=== PATIENT | male | born 1930 | race Hispanic/Latino ===

== ENCOUNTER 2017-08-27 16:46 | Observation (INO) | payer MEDICARE ==
[2017-08-27] MEDS ORDERED: Sodium Chloride 0.9% 500 ML IV STA (17:14)
--- NOTE | 2017-08-27 17:18 | ED PDOC ---
Arrival/HPI - General Chief Complaint: Dizziness/Lightheaded Time Seen by Provider: 08/27/17 16:50 Historian: Patient, Spouse - History of Present Illness Time/Duration: Other (This morning) Symptom Onset: Gradual Symptom Course: Unchanged Severity Level: Moderate Activities at Onset: Rest Associated Symptoms (Text): 08/27/17 17:16 Patient was at work this morning when he developed generalized weakness and fatigue and feeling as if he were going to faint. He did not actually faint. No chest pain palpitations or dyspnea. No nausea or vomiting. He has never experienced this previously. No cough congestion or URI. No fever or chills. No injury or trauma. History of coronary artery disease and stent placement in 2013. Past Medical History - Tetanus Immunization Tetanus Immunization: Unknown - Cardiac Hx Cardiac Disorders: Yes Hx Congestive Heart Failure: Yes Hx Hypertension: Yes Hx Pacemaker: No Hx Peripheral Edema: Yes (chronic) - Pulmonary Hx Respiratory Disorders: No - Neurological Hx Neurological Disorder: No Hx Paralysis: No - HEENT Hx HEENT Disorder: Yes ([place]) - Renal Hx Renal Disorder: No - Endocrine/Metabolic Hx Endocrine Disorders: No - Hematological/Oncological Hx Blood Disorders: No Hx Blood Transfusions: No Hx Blood Transfusion Reaction: No - Integumentary Hx Dermatological Disorder: No - Musculoskeletal/Rheumatological Hx Musculoskeletal Disorders: Yes Hx Falls: Yes Hx Gout: Yes - Gastrointestinal Hx Gastrointestinal Disorders: No Other/Comment: umbilical hernia - Genitourinary/Gynecological Hx Genitourinary Disorders: Yes Hx Prostate Problems: Yes - Psychiatric Hx Psychophysiologic Disorder: No Hx Emotional Abuse: No Hx Physical Abuse: No Hx Substance Use: No - Surgical History Hx Cardiac Catheterization: Yes Hx Coronary Stent: Yes Hx Orthopedic Surgery: Yes (right rotator cuff repair) Other/Comment: ptca with stents 2013. left 3rd digit - Anesthesia Hx Anesthesia: Yes Hx Anesthesia Reactions: No Hx Malignant Hyperthermia: No - Suicidal Assessment Feels Threatened In Home Enviroment: No Family/Social History - Physician Review Nursing Documentation Reviewed: Yes Family/Social History: Unknown Family HX Smoking Status: Former Smoker Hx Alcohol Use: No Hx Substance Use: No Hx Substance Use Treatment: No Allergies/Home Meds Allergies/Adverse Reactions: Allergies No Known Allergies Allergy (Verified 08/27/17 17:05) Home Medications: Home Meds Medication Instructions Recorded Confirmed Tamsulosin [Flomax] 0.4 mg PO QPM 09/16/13 08/27/17 Carvedilol [Coreg] 6.25 mg PO BID 09/17/13 08/27/17 Atorvastatin Calcium [Lipitor] 10 mg PO DAILY 06/10/14 08/27/17 Aspirin [Adult Low Dose Aspirin EC] 81 mg PO DAILY 08/27/17 08/27/17 Ciprofloxacin [Cipro] 500 mg PO BID 08/27/17 08/27/17 Colchicine [Colcrys] 0.6 mg PO TID 08/27/17 08/27/17 Furosemide [Lasix] 60 mg PO DAILY 08/27/17 08/27/17 Levetiracetam [Keppra] 250 mg PO BID 08/27/17 08/27/17 Travoprost [Travatan Z 2.5 ml] 2.5 ml OP DAILY 08/27/17 08/27/17 Review of Systems - Physician Review All systems were reviewed & negative as marked: Yes - Review of Systems Constitutional: Fatigue. absent: Fevers Respiratory: absent: SOB, Cough, Wheezing Cardiovascular: absent: Chest Pain, Palpitations, Syncope Gastrointestinal: absent: Abdominal Pain, Diarrhea, Nausea, Vomiting Neurological: absent: Headache, Dizziness, Focal Weakness, Gait Changes Physical Exam Vital Signs Temp Pulse Resp BP Pulse Ox 08/27/17 17:05 105/44 L 08/27/17 16:46 98.1 F 67 18 127/66 98 Temperature: Afebrile Blood Pressure: Hypotensive Pulse: Regular Respiratory Rate: Normal Appearance: Positive for: Well-Appearing, Non-Toxic, Comfortable Pain Distress: None Mental Status: Positive for: Alert and Oriented X 3 - Systems Exam Head: Present: Atraumatic, Normocephalic Pupils: Present: PERRL Extroacular Muscles: Present: EOMI Conjunctiva: Present: Normal Ears: Present: NORMAL TM, Normal Canal. No: Erythema Mouth: Present: Moist Mucous Membranes Pharnyx: No: ERYTHEMA, EXUDATE, TONSILS ENLARGED Neck: Present: Normal Range of Motion Respiratory/Chest: Present: Clear to Auscultation, Good Air Exchange, Decreased Breath Sounds. No: Respiratory Distress, Accessory Muscle Use Cardiovascular: Present: Regular Rate and Rhythm, Normal S1, S2. No: Murmurs Abdomen: No: Tenderness, Distention, Peritoneal Signs, Rebound, Guarding Upper Extremity: Present: Normal Inspection. No: Cyanosis, Edema Lower Extremity: Present: Normal Inspection. No: Edema Neurological: Present: GCS=15, CN II-XII Intact, Speech Normal, Motor Func Grossly Intact, Normal Sensory Function, Normal Cerebellar Funct Skin: Present: Warm, Dry, Normal Color. No: Rashes Psychiatric: Present: Alert, Oriented x 3, Normal Insight, Normal Concentration Medical Decision Making ED Course and Treatment: 08/27/17 17:35 EKG shows normal sinus rhythm rate approximately 70 with a primary AV block and a right bundle branch block and no acute ST-T wave changes 08/27/17 18:35 Chest X-ray: Creator : Neal Hewitt MD IMPRESSION: No active disease. 08/27/17 18:[address] without contrast: Dictator : Neal Hewitt MD IMPRESSION: No acute intracranial abnormalities. No significant findings to account for the clinical presentation. - Lab Interpretations Lab Results: 08/27/17 18:30 08/27/17 18:30 Lab Results 08/27/17 18:30: Sodium 141, Potassium 3.6, Chloride 107, Carbon Dioxide 22, Anion Gap 16, BUN 51 H, Creatinine 1.8 H, Est GFR ( Amer) 43, Est GFR ( Non-Af Amer) 36, Random Glucose 98, Calcium 9.8, Magnesium 2.2, Total Bilirubin 0.6, AST 37, ALT 46, Alkaline Phosphatase 70, Lactate Dehydrogenase 477, Total Creatine Kinase 195, Troponin I 0.03, Total Protein 6.7, Albumin 3.7, Globulin 3.0, Albumin/Globulin Ratio 1.3 08/27/17 18:30: PT 13.8 H, INR 1.21 H, APTT 30.5 08/27/17 18:30: WBC 5.7, RBC 3.97, Hgb 11.3 L, Hct 33.9 L, MCV 85.4, MCH 28.5, MCHC 33.3, RDW 13.2, Plt Count 180, MPV 10.5, Gran % 59.0, Lymph % (Auto) 21.5 L , Piatt % (Auto) 6.5 H, Eos % (Auto) 12.3 H, Baso % (Auto) 0.7, Gran # 3.35, Lymph # (Auto) 1.2, Piatt # (Auto) 0.4, Eos # (Auto) 0.7, Baso # (Auto) 0.04 - RAD Interpretation Radiology Orders: 08/27/17 17:14 HEAD W/O CONTRAST [CT] Stat 08/27/17 17:15 CHEST PORTABLE [RAD] Stat CT scan of the head as read by the radiologist shows no acute findings. Chest 1 view shows no infiltrate effusion or cardiomegaly Java Tech Lead: Radiologist - Medication Orders Current Medication Orders: Discontinued Medications Sodium Chloride (Sodium Chloride 0.9%) 500 mls @ 1,000 mls/hr IV .Q30M STA Stop: 08/27/17 17:43 Last Admin: 08/27/17 17:53 Dose: 1,000 mls/hr eMAR Start Stop Document 08/27/17 17:53 EQ (Rec: 08/27/17 17:54 EQ [id number]) Intravenous Solution Start Date 08/27/17 Start Time 17:53 Disposition/Present on Arrival - Present on Arrival Any Indicators Present on Arrival: No History of DVT/PE: No History of Uncontrolled Diabetes: No Urinary Catheter: No History of Decub. Ulcer: No History Surgical Site Infection Following: None - Disposition Have Diagnosis and Disposition been Completed?: Yes Diagnosis: Near syncope, Dehydration, Renal failure Disposition: HOSPITALIZED Disposition Time: 19:12 Patient Plan: Observation, Telemetry Condition: GOOD Referrals: Scottie Sheth MD [Primary Care Provider] - Follow up with primary Forms: [employer] (German)
[2017-08-27 17:34] VITALS: BMI 28.5
--- NOTE | 2017-08-27 18:08 | RAD ---
HISTORY: weak COMPARISON: 05/08/2014 FINDINGS: LUNGS: No active pulmonary disease. Previously identified left lower lobe infiltrate has resolved. PLEURA: No significant pleural effusion identified, no pneumothorax apparent. Previously identified left pleural effusion has resolved CARDIOVASCULAR: No radiographic findings to suggest acute or significant cardiovascular disease. OSSEOUS STRUCTURES: No significant abnormalities. VISUALIZED UPPER ABDOMEN: Normal. OTHER FINDINGS: None. IMPRESSION: No active disease.
[2017-08-27 18:39] LABS: BASO # 0.04 K/mm3 (0.0-2.0); BASO % 0.7 % (0.0-3.0); EOS # 0.7 (0.0-0.7); EOS % 12.3 % (1.5-5.0); GRAN # 3.35 (1.4-6.5); HEMOGLOBIN 11.3 g/dL (14.0-18.0); LYMPH # 1.2 (1.2-3.4); LYMPH % 21.5 % (22.0-35.0); MEAN CELL VOLUME 85.4 fl (80.0-105.0); MEAN CORPUSCULAR HEMOGLOBIN 28.5 pg (25.0-35.0); MEAN CORPUSCULAR HGB CONC 33.3 g/dl (31.0-37.0); MEAN PLATELET VOLUME 10.5 fl (7.0-11.0); MONO # 0.4 (0.1-0.6); MONO % 6.5 % (1.0-6.0); RBC 3.97 10^6/uL (3.5-6.1); RED CELL DISTRIBUTION WIDTH 13.2 % (11.5-14.5); WHITE BLOOD COUNT 5.7 10^3/ul (4.5-11.0)
--- NOTE | 2017-08-27 18:45 | CT ---
PROCEDURE: CT HEAD WITHOUT CONTRAST. HISTORY: Dizziness, weakness. COMPARISON: None available. TECHNIQUE: Axial computed tomography images were obtained through the head/brain without intravenous contrast. Radiation dose: Total exam DLP = 1228.11 mGy-cm. This CT exam was performed using one or more of the following dose reduction techniques: Automated exposure control, adjustment of the mA and/or kV according to patient size, and/or use of iterative reconstruction technique. FINDINGS: HEMORRHAGE: No intracranial hemorrhage. BRAIN: No mass effect or edema. Cortical and cerebellar atrophy, periventricular small vessel disease. VENTRICLES: Unremarkable. No hydrocephalus. CALVARIUM: Unremarkable. PARANASAL SINUSES: Unremarkable as visualized. No significant inflammatory changes. MASTOID AIR CELLS: Unremarkable as visualized. No inflammatory changes. OTHER FINDINGS: None. IMPRESSION: No acute intracranial abnormalities. No significant findings to account for the clinical presentation.
[2017-08-27 18:48] LABS: INR 1.21 (0.93-1.08); PARTIAL THROMBOPLASTIN TIME 30.5 Seconds (25.1-36.5); PROTHROMBIN TIME 13.8 SECONDS (9.4-12.5)
[2017-08-27 18:51] LABS: ALB/GLOB RATIO 1.3 (1.1-1.8); ALBUMIN 3.7 g/dL (3.0-4.8); CALCIUM 9.8 mg/dL (8.4-10.5)
[2017-08-27 19:00] LABS: TROPONIN I 0.03 ng/mL
--- NOTE | 2017-08-27 19:16 | CARD ---
APPROVED REPORT EKG Measurement Heart [id number] IL [id number] <Conclusion> Sinus rhythm with sinus arrhythmia with 1st degree AV block Right bundle branch block Left anterior fascicular block Bifascicular block Minimal voltage criteria for LVH, may be normal variant Abnormal ECG
[2017-08-28 06:11] VITALS: O2SAT 96
[2017-08-28] MEDS ORDERED: Sodium Chloride 0.9% 1,000 ML IV SCH (08:15)
[2017-08-28 09:38] LABS: CALCIUM 9.2 mg/dL (8.4-10.5)
[2017-08-28] MEDS ORDERED: TRAVOPROST OP SCH (10:00)
--- NOTE | 2017-08-28 11:00 | CON ---
DATE: 08/28/2017 REASON FOR CONSULTATION: Lightheadedness, near syncope. HISTORY OF PRESENT ILLNESS: This is an 87-year-old man, known to me with coronary artery disease and cardiomyopathy, who developed weakness and fatigue recently. Yesterday, he felt as if he might pass out. He came to the emergency room. He has been admitted to telemetry. This morning, he feels better, but still notes fatigue. There was no chest pain, shortness of breath, orthopnea, PND, vertigo, syncope, loss of consciousness, seizure activity, fever, chills, cough, sputum production, hemoptysis, abdominal pain, nausea, vomiting, diarrhea, constipation, melena. PAST MEDICAL HISTORY: Notable for coronary artery disease. He had triple vessel disease and underwent stents of the right coronary, left anterior descending and circumflex artery in 2013. He had cardiomyopathy with LV function that improved following the interventions. His last ejection fraction was 46%. He has a history of hypertension, anemia, umbilical hernia, renal cyst. There is no history of congestive heart failure, arrhythmia, stroke, TIA, diabetes or gout. MEDICATIONS AT THE TIME OF ADMISSION: Include Flomax, Coreg, Lipitor, aspirin, colchicine, Lasix, Keppra, Cipro, Travatan. ALLERGIES: NO KNOWN MEDICATION ALLERGIES. SOCIAL HISTORY: He lives at home with his . He is ambulatory. He does not smoke cigarettes or drink alcohol. FAMILY HISTORY: Noncontributory. REVIEW OF SYSTEMS: Ten-point review of systems is otherwise unremarkable except as noted above. PHYSICAL EXAMINATION: GENERAL: He is a well-developed male, lying in bed on telemetry, in no acute distress. VITAL SIGNS: Notable for sinus rhythm to sinus bradycardia, 52-67 beats per minute. He is afebrile, blood pressure 165/85, respirations 18-20, O2 sat 96-98% on room air. HEENT: Reveals no neck vein distention, thyromegaly, carotid bruit. Mucous membranes moist. Conjunctivae pink. NECK: Supple. LUNGS: Lung shearer clear throughout. HEART: Examination of the heart revealed a regular rhythm. Normal first and second heart sounds. ABDOMEN: Soft. Bowel sounds present. No mass, organomegaly, tenderness, rebound, guarding. No CVA tenderness. No palpable abdominal aortic aneurysm. EXTREMITIES: No cyanosis, clubbing or edema. NEUROLOGIC: Awake, alert and oriented. PSYCHIATRIC: Normal as to mood and affect. SKIN: Warm and dry. No rash or cellulitis. LABORATORY DATA AND IMAGING: EKG demonstrates regular sinus rhythm. Left anterior hemiblock. Right bundle-branch block. Poor R-wave progression. Nonspecific ST-wave changes. No change from the previous EKG. Chest x-ray reveals no active disease. CT scan of the head reveals no acute intracranial abnormalities. White count normal, platelet count normal, hemoglobin 11.3, hematocrit 33.9. PT/INR 13.8 and 1.2 respectively, PTT normal. Chemistries normal. BUN initially 51, repeat 43; creatinine initially 1.8, repeat 1.5; blood sugar 98, repeat 200. Calcium normal. Magnesium normal. LFTs normal. CK normal. Troponin normal. IMPRESSION: Huang Fisher is an 87-year-old man with known coronary artery disease, mildly reduced left ventricular function, admitted with near syncope in the setting of recent fatigue and weakness. He is admitted to telemetry. I will review his old records. I will order an echocardiogram and postural vital signs. We will check a TSH level. He will have a neurologic evaluation. He is getting IV fluids. He is on Coreg, aspirin, Flomax, Keppra, Lipitor, Travatan. We will check stool for occult blood. Monitor inputs and outputs. I will follow along with you. I will make additional recommendations based on his clinical course. Ozzie Babb MD
[2017-08-28 12:27] VITALS: BP 158/83; PULSE 55; RESP 20; TEMP 98.4
--- NOTE | 2017-08-28 16:37 | HP ---
CHIEF COMPLAINT AND HISTORY OF PRESENT ILLNESS: This is an 87-year-old male, who is coming in to the hospital with complaints of dizziness. He says he feels like he is going to pass out. He has been having diarrhea. He says that he has been treated for gout recently by his orthopedic doctor. He was taking colchicine 3 times a day and he is having diarrhea. He says that he has no complaints of any chest pain. He has no abdominal pain. No back pain. No dysuria, frequency. He says he is feeling better this morning. He has no seizure disorder. He has no dysuria. No dysarthria. No chest pain. No palpitations. REVIEW OF SYMPTOMS: All the review of symptoms are within normal limits except as mentioned. ALLERGIES: NO KNOWN DRUG ALLERGIES. HOME MEDICATIONS: Have been reviewed on the [facility]. PAST MEDICAL HISTORY: 1. He has a cardiomyopathy. 2. Coronary artery disease with stent. 3. Kidney cyst. 4. Hearing impairment. 5. Gout. FAMILY HISTORY: Noncontributory. SOCIAL HISTORY: He lives with his . He denies smoking and drinking. PHYSICAL EXAMINATION: VITAL SIGNS: He has a temperature of 98.2, pulse of 62, blood pressure is 165/85, respirations 18, O2 saturation 96%. Height is 5 feet 11. Weight is 196 pounds. BMI is 27. GENERAL: The patient lying in bed, uncomfortable, and in no acute distress. HEENT: Atraumatic and normocephalic. Anicteric sclerae. Moist mucosa. Flasher conjunctivae. No oral lesions. NECK: No JVD, anterior and posterior adenopathy, thyromegaly, or bruits. CARDIOVASCULAR: S1 and S2 regular. No murmur, rubs, or gallop. LUNGS: Clear to auscultation bilaterally. No wheezes, rales, or rhonchi. ABDOMEN: Bowel sounds are positive. Soft, nontender and nondistended. No hepatosplenomegaly. No rebound and no guarding EXTREMITIES: No cyanosis, clubbing, or edema. In the left third finger, it is enlarged. No erythema. No pain on palpation. NEUROLOGIC: No facial asymmetry. Tongue is midline. No uvula deviation. Power is 5/5 upper extremity and lower extremity. Sensation intact in upper extremity and lower extremity. PSYCHIATRIC: He is awake, alert and oriented x3. No anxiety or depression. He has normal affect. GENITOURINARY: No CVA tenderness. VASCULAR: 2+ pulses in the carotid pulses and pedal pulses. SKIN: No erythema or nodules SPINE: Shows normal curvature. LABORATORY DATA: Labs obtained, white count of 5.7, hemoglobin 11.3. INR is 1.2. Chemistry shows a sodium of 141, potassium is 3.6, creatinine is 1.8, repeat creatinine is 1.5, initial troponin is 0.03, albumin is 3.7, TSH is 1.3. EKG done shows sinus rhythm with a first-degree AV block. CT of the head done shows no acute intracranial findings. Chest x-ray done shows no active disease. ASSESSMENT: 1. Acute kidney injury secondary to hypovolemia. 2. Hypovolemia secondary to diarrhea secondary to colchicine. 3. Gout. 4. Coronary artery disease. 5. Dyslipidemia. PLAN: The patient is currently comfortable. The patient was seen by Cardiology. He was given IV fluids. He had received 2 L. His creatinine is improving. He was advised to decrease his colchicine to once a day. Because of his diarrhea, he is going to continue his aspirin. He is on Flomax for his BPH. The patient is receiving Lipitor for dyslipidemia. He is on eye drops for his glaucoma. He is on a heart-healthy diet. He is going to be discharged home to follow up as an outpatient with his primary care doctor, Dr. Sheth and his orthopedic doctor. Discharge home. Mayur Baldwin MD
--- NOTE | 2017-08-28 18:52 | CON ---
DATE: 08/28/2017 NEUROLOGY CONSULTATION CHIEF COMPLAINT: Near syncope. HISTORY OF PRESENT ILLNESS: This is an 87-year-old man with past medical history of cardiomyopathy with last ejection fraction of 46%; coronary artery disease, status post stenting, history of CABG; history of hearing impairment and gout, who came in with complaints of dizziness and he felt lightheaded and felt like he is going to pass out. He said he was having diarrhea and he said he has been treated for gout recently by his orthopedic doctor and he is on colchicine 3 times a day and he is having diarrhea, but no chest pain. No change in sense of vision, taste or smell. No seizure disorder. He had some low systolic and diastolic blood pressures initially when he came in in the ER of 105/44 where he has been hydrated. Currently, he is doing well. No focal weakness of the extremities. CT head showed no acute intracranial abnormalities. Cardiology's evaluation appreciated. REVIEW OF SYSTEMS: Fourteen-point review of systems negative except as per the HPI. PAST MEDICAL HISTORY: History of cardiomyopathy, coronary artery disease, history of CABG, history of hearing impairment, gout, kidney cysts. FAMILY HISTORY: Noncontributory. SOCIAL HISTORY: Lives with his . No illicit drug use, smoking or EtOH abuse. LABORATORY DATA: Sodium is 141, potassium 3.9, chloride 108, carbon dioxide 23, BUN of 43, creatinine 1.5, random glucose 200. PHYSICAL EXAMINATION: VITAL SIGNS: Temperature 98.4, pulse rate 55, blood pressure 158/83, respiratory rate of 20. GENERAL: The patient is sitting up in bed, in no acute distress. HEENT: Atraumatic, normocephalic. PERRLA. Extraocular muscles intact. NECK: Supple. No JVD. No adenopathy noted. LUNGS: Clear to auscultation. No adventitious sounds. HEART: S1, S2. Normal rate and rhythm. No murmurs, rubs or gallops. EXTREMITIES: No clubbing. No cyanosis. Peripheral pulses 2+ felt bilaterally. ABDOMEN: Soft, nontender and nondistended. Bowel sounds are present. NEUROLOGIC: The patient is alert and oriented to person, place, month and year. Speech is fluent without any errors. Cranial nerves II through XII intact. Motor exam: Moves all extremities equally. Toes are downgoing bilaterally. Sensory exam: Light touch, pinprick, proprioception and vibration are intact. DTRs are 2+ throughout. Coordination: [id number] intact. No dysmetria noted. Gait is deferred for now. ASSESSMENT AND PLAN: This is an 87-year-old man with past medical history of cardiomyopathy, ejection fraction of 46%; coronary artery disease, status post stents and coronary artery bypass graft; hearing impairment and gout. He was taking colchicine for his gout, having some diarrhea. He felt like he is going to pass out and felt lightheaded. He was found to have acute kidney injury secondary to hypovolemia and hypovolemia secondary to diarrhea secondary to colchicine. Overall, he has a near vasovagal component to his episode. At this time, recommend, 1. Adequate hydration. Aspirin 81, Lipitor 10 mg for stroke prevention. 2. Follow up with his outpatient primary care doctor and he is clinically stable for discharge. At this time, continue current present medical management and the heart healthy diet. Thank you for this consult. Amos Anders MD
[2017-08-28] MEDS ORDERED: Latanoprost 2.5 ml Opht Soln OU SCH (22:00)
--- NOTE | 2017-08-29 07:45 | CARD ---
APPROVED REPORT EXAM: Two-dimensional and M-mode echocardiogram with Doppler and color Doppler. INDICATION Cardiac Disease: CAD Syncope 2D DIMENSIONS Left Atrium (2D)4.9 (1.6-4.0cm)IVSd1.9 (0.7-1.1cm) LVDd3.8 (3.9-5.9cm)PWd1.4 (0.7-1.1cm) LVDs3.0 (2.5-4.0cm)FS (%) 20.7 % LVEF (%)43.0 (>50%) M-Mode DIMENSIONS Aortic Root2.60 (2.2-3.7cm)Aortic Cusp Exc.1.20 (1.5-2.0cm) Aortic Valve AoV Peak Oaenhitr975.0cm/Marjorie Peak GR.17mmHg Mitral Valve MV E Urgbhumn08.1cm/sMV A Ahskcqum259.0cm/sMV [id number] E/A ratio0.6MVA (PHT)1.71cm2 TDI E/Lateral E'0.0E/Medial E'0.0 Tricuspid Valve TR Peak Spdpppft373pw/sRAP [id number] Peak Gr.19mmHg [id number] LEFT VENTRICLE The left ventricle is normal size. There is moderate concentric left ventricular hypertrophy. The systolic function is mildly impaired. There is global hypokinesis of the left ventricle. RIGHT VENTRICLE The right ventricle is normal size. The right ventricular systolic function is normal. ATRIA The left atrium is moderately dilated. The right atrium is mildly dilated. The interatrial septum is intact with no evidence for an atrial septal defect. AORTIC VALVE The aortic valve is moderately calcified. No aortic regurgitation is present. There is mild valvular aortic stenosis. MITRAL VALVE The mitral valve leaflets are thickened. Mitral regurgitation is mild. TRICUSPID VALVE The tricuspid valve is normal in structure. There is mild tricuspid regurgitation. PULMONIC VALVE The pulmonary valve is normal in structure. GREAT VESSELS The aortic root is normal in size. The IVC is normal in size and collapses >50% with inspiration. PERICARDIAL EFFUSION There is no pleural effusion. There is no pericardial effusion. <Conclusion> Biatrial enlargement. Normal LV size. Mild global LV hypokinesis. Moderate concentric LVH. Mild . Mild MR. Mild TR.
== END 2017-08-28 18:40 | disposition home or self-care (01) ==
LOC: ED 16:46 → ERH 19:10 → 2RNO 22:36
PROVIDERS: ADMIT Internal Medicine Nephrology; ATTEND Internal Medicine Nephrology
DX: R55 Syncope and collapse (principal); N17.9 Acute kidney failure, unspecified; E86.0 Dehydration; E86.1 Hypovolemia; I25.10 Atherosclerotic heart disease of native coronary artery without angina pectoris; R53.1 Weakness; M10.9 Gout, unspecified; R19.7 Diarrhea, unspecified; T50.4X5A Adverse effect of drugs affecting uric acid metabolism, initial encounter; N40.0 Benign prostatic hyperplasia without lower urinary tract symptoms; I42.9 Cardiomyopathy, unspecified; I11.0 Hypertensive heart disease with heart failure; I50.9 Heart failure, unspecified; K42.9 Umbilical hernia without obstruction or gangrene; E78.5 Hyperlipidemia, unspecified; D64.9 Anemia, unspecified; N28.1 Cyst of kidney, acquired; H91.90 Unspecified hearing loss, unspecified ear; H40.9 Unspecified glaucoma; I44.0 Atrioventricular block, first degree; I45.10 Unspecified right bundle-branch block; Z79.82 Long term (current) use of aspirin; Z95.1 Presence of aortocoronary bypass graft; Z95.5 Presence of coronary angioplasty implant and graft
CPT/HCPCS: 36415; 70450; 71045; 80048; 80053; 82550; 83615; 83735; 84443; 84484; 85025; 85610; 85730; 93005; 93306; 99285; G0378; J7040